=== PATIENT | male | born 1950 | race Caucasian/White ===

== ENCOUNTER 2019-02-11 20:30 | Outpatient (CLI) | payer MEDICARE | END 2019-02-11 20:31 | disposition home or self-care (01) | LOC: SLEEPLAB 20:30 | PROVIDERS: ATTEND Family Medicine | DX: G47.33 Obstructive sleep apnea (adult) (pediatric) (principal); R53.83 Other fatigue; R09.89 Other specified symptoms and signs involving the circulatory and respiratory systems; R51 Headache; R06.83 Snoring; R35.1 Nocturia; I10 Essential (primary) hypertension; E11.9 Type 2 diabetes mellitus without complications; G47.00 Insomnia, unspecified; G47.10 Hypersomnia, unspecified; E66.9 Obesity, unspecified; Z68.38 Body mass index [BMI] 38.0-38.9, adult | CPT/HCPCS: 95811 ==

== ENCOUNTER 2022-04-10 12:26 | Outpatient (CLI) | payer MEDICARE | END 2022-04-10 12:27 | disposition home or self-care (01) | LOC: BICRAD 12:26 | PROVIDERS: ATTEND Internal Medicine | DX: R05.9 Cough, unspecified (principal) | CPT/HCPCS: 71046; U0003; U0005 ==

== ENCOUNTER 2023-11-04 09:27 | Outpatient (CLI) | payer MEDICARE | END 2023-11-04 09:28 | disposition home or self-care (01) | LOC: BICRAD 09:27 | PROVIDERS: ATTEND Internal Medicine | DX: M79.644 Pain in right finger(s) (principal); M15.1 Heberden's nodes (with arthropathy) ==